=== PATIENT | male | born 1995 | race Caucasian/White ===

== ENCOUNTER 2019-10-22 20:32 | Emergency (ER) | payer OTHER, SELFPAY ==
--- NOTE | ~2019-10-22 | XR_ITS ---
EXAMINATION: XR shoulder LT min 2V DATE: 10/22/2019 20:49 INDICATION: Left shoulder pain post fall TECHNIQUE: AP internally, AP oblique externally rotated and transscapular Y views of the left shoulde r were obtained. COMPARISON: None FINDINGS: Comminuted fractures at the junction of the mid to distal diaphysis of the left clavicle. There is ap proximately 25 degrees apex cephalad angulation. There is also mild posterior displacement of the lat eral fragment with approximately 1 cm of overriding. No other fractures identified. Normal alignment and joint space the glenohumeral and acromioclavicular joints. Slice portions of the lungs are clear. IMPRESSION: Comminuted diaphyseal fractures of the left clavicle. Reviewed, dictated and finalized at location A. TECHNICIAN
[2019-10-22 20:35] VITALS: BP 127/71; PULSE 61; RESP 18; TEMP 36.7; O2SAT 100
--- NOTE | 2019-10-22 21:31 | ED_ITS ---
I attest that this documentation has been prepared under the direction and in the presence of Otto Salas MD. Anjel Nieto Scribe 10/22/19;21:31 HPI - Extremity Injury (Upper) General Chief Complaint: Extremity Injury, Upper Stated Complaint: left shoulder pain Time Seen by Provider: 10/22/19 20:54 Source: patient and RN notes reviewed Mode of arrival: ambulatory Limitations: no limitations History of Present Illness HPI narrative: Pt is a 24 y/o male presenting to the ED c/o shoulder pain. Pt reports he fell on his lt shoulder while skateboarding about 2 hrs ago. Pt reports lt shoulder pain, diaphoresis, and nausea, but denies neck pain. Pt states he did not hit his head during the fall. Onset (ago): hour(s) (2) Other Extremity Injury: Left: shoulder Place: outdoors Associated symptoms: nausea/vomiting (Nausea, no vomiting) and other ( Diaphoresis) Related Data Allergies Allergy/AdvReac Type Severity Reaction Status Date / Time No Known Allergies Allergy Unverified 04/17/14 12:07 Review of Systems Review of Systems: All systems reviewed & are unremarkable except as noted in HPI and below Cardiovascular: Cardiovascular: Reports diaphoresis Gastrointestinal: Gastrointestinal: Reports nausea Musculoskeletal: Musculoskeletal: Denies neck pain and Reports other (LT shoulder pain) [facility] Past Medical History Medical History Arm fracture Nasal fracture Seasonal allergies Toe fracture Surgical History Surgical History No significant past surgical history Social History Social History Smoking packs per day: 0.5 Smoking cigarettes per day: 10.0 Smoking status: Current every day smoker Gender identity (if verbalized by the patient): Male Course Vital Signs Vital signs: Vital Signs Temperature 36.7 C 10/22/19 20:35 Pulse Rate 61 10/22/19 20:35 Respiratory Rate 18 10/22/19 20:35 Blood Pressure 127/71 10/22/19 20:35 Pulse Oximetry 100 10/22/19 20:35 Temperature 36.7 C 10/22/19 20:35 Pulse Rate 61 10/22/19 20:35 Respiratory Rate 18 10/22/19 20:35 Blood Pressure 127/71 10/22/19 20:35 Pulse Oximetry 100 10/22/19 20:35 Discharge Plan Discharge Clinical Impression: Closed fracture of left clavicle Patient Disposition: Home, Self-Care Condition: Stable Instructions: Clavicle Fracture (ED) Additional Instructions: Return if symptoms are worsening , call your family physician/Dr. Gomez for appointment, take Tylenol as as needed for aches and pain, continue home medications. Prescriptions: New hydrocodone-acetaminophen [Leming] 5-325 mg tablet 1 tablet PO Q4H PRN (Reason: pain) Qty: 20 RF: 0 hydrocodone-acetaminophen [Leming] 5-325 mg tablet 1 tablet PO Q4H PRN (Reason: pain) Qty: 20 RF: 0 Follow-up/Referrals: Chetan Agustin MD [Physician] - 10/26/19 UNKNOWN,DOCTOR [Primary Care Provider] - Discharge Date/Time: 10/22/19 22:45 I personally performed the services described in this documentation. All medical record entries made by the scribe were at my direction and in my presence. I have review
[2019-10-22] MEDS: IBUPROFEN 600 MG TABLET PO (21:41)
== END 2019-10-22 22:45 | disposition home or self-care (01) ==
PROVIDERS: Emergency Provider Emergency Medicine
DX: S42.022A Displaced fracture of shaft of left clavicle, initial encounter for closed fracture (principal); V00.131A Fall from skateboard, initial encounter; Y93.51 Activity, roller skating (inline) and skateboarding; F17.210 Nicotine dependence, cigarettes, uncomplicated
CPT/HCPCS: 73030; 99284; A9270

== ENCOUNTER 2021-01-24 18:16 | Emergency (ER) | payer OTHER, SELFPAY ==
--- NOTE | ~2021-01-24 | XR_ITS ---
EXAMINATION: XR wrist RT min 3V DATE: 01/24/2021 18:46 INDICATION: Right wrist pain. TECHNIQUE: 4 views of right wrist were obtained. COMPARISON: Right wrist radiographs 04/17/2014 FINDINGS: Bone alignment is normal. No fracture. Joint spaces are well maintained. IMPRESSION: 1. Normal right wrist. Reviewed, dictated and finalized at location A. IMPRESSION: 1. Normal right wrist.
[2021-01-24 18:24] VITALS: BP 123/64; PULSE 89; RESP 16; TEMP 36.1; O2SAT 99
--- NOTE | 2021-01-24 19:04 | ED.UPPEXIN ---
HPI - Extremity Injury (Upper) General Chief Complaint: Extremity Injury, Upper Stated Complaint: right wrist pain Time Seen by Provider: 01/24/21 18:35 Source: patient and RN notes reviewed Mode of arrival: ambulatory Limitations: no limitations History of Present Illness HPI narrative: Patient presents today complaining of right wrist pain since September. States he fell while skateboarding and injured his wrist. Reports he wears a wrist brace but tweaks the wrist daily while starting [employer] while working for the [employer], causing increased pain. He never did get the wrist evaluated after the fall and wanted to come in for evaluation today because the pain is persisting. He does report some tingling to the ulnar side of the hand and wrist that started 1 week after the fall because he fell again. Denies any numbness. Currently rates his pain 02/26. He has been applying ice and taking Advil without relief. MD complaint: injury to: right and wrist Related Data Home Medications Medication Instructions Recorded Confirmed clonazepam 0.5 mg PO BID PRN 01/24/21 01/24/21 dextroamphetamine-amphetamine 20 mg PO DAILY 01/24/21 01/24/21 lisdexamfetamine [Vyvanse] 50 mg PO DAILY 01/24/21 01/24/21 Allergies Allergy/AdvReac Type Severity Reaction Status Date / Time No Known Allergies Allergy Verified 01/24/21 18:37 Review of Systems Review of Systems: Narrative: CONSTITUTIONAL: Denies body aches, fever, chills, or sweats. EYES: Denies visual changes, redness, or discharge. ENT: Denies rhinorrhea, congestion, sore throat, or otalgia. CARDIOVASCULAR: Denies chest pain, palpitations, or edema. RESPIRATORY: Denies cough or dyspnea. GASTROINTESTINAL: Denies abdominal pain, nausea, vomiting, or diarrhea. GENITOURINARY: Denies dysuria or hematuria. SKIN: Denies rash, itching, or wounds. MUSCULOSKELETAL: Denies back pain, or myalgia. + Right wrist pain NEUROLOGIC: Denies headache, numbness, tingling, or weakness. PSYCH: Denies depression or anxiety. [facility] Past Medical History Medical History (Updated 01/24/21 @ 19:05 by Janie Mosley, SALES ROUTE DRIVER, BC) Arm fracture Nasal fracture Seasonal allergies Toe fracture Surgical History Surgical History No significant past surgical history Social History Social History Smoking packs per day: 0.5 Smoking cigarettes per day: 10.0 Smoking status: Current every day smoker Gender identity (if verbalized by the patient): Male Comments At time of signature, I have reviewed and agree with nursing past medical, surgical, social and family history unless otherwise noted. Please see nursing chart for further information. There is no relevant family history pertinent to the presenting complaint Exam Narrative: Exam Narrative: GENERAL: Well-appearing, well-nourished, and in no acute distress. HEAD: Normocephalic, atraumatic. EYES: EOMI. No redness or drainage. Conjunctivae normal. ENT: Mucous membranes pink and moist. NECK: Normal AROM. CHEST: No respiratory distress. EXTREMITIES: Right wrist: Tenderness to the ulnar aspect of the wrist. No edema. Pain with range of motion, especially with pronation and supination. Distal sensation intact in all fingers. Capillary refill normal. Radial pulse normal. Handgrips equal and strong. SKIN: Warm, dry, no rash. Capillary refill normal. Normal skin turgor. NEURO: No focal deficits. Alert and oriented x3. Gait steady. PSYCH: Normal affect. No signs of depression or anxiety. Course Vital Signs Vital signs: Vital Signs Temperature 97.0 F L 01/24/21 18:24 Pulse Rate 89 01/24/21 18:24 Respiratory Rate 16 01/24/21 18:24 Blood Pressure 123/64 01/24/21 18:24 Pulse Oximetry 99 01/24/21 18:24 Temperature 97.0 F L 01/24/21 18:24 Pulse Rate 89 01/24/21 18:24 Respiratory Rate 16 01/24/21 18:24 Blood Pressure
== END 2021-01-24 19:13 | disposition home or self-care (01) ==
PROVIDERS: Emergency Provider Nurse Practitioner
DX: G89.29 Other chronic pain (principal); M25.531 Pain in right wrist; F17.210 Nicotine dependence, cigarettes, uncomplicated
CPT/HCPCS: 73110; 99213; G0463

== ENCOUNTER → 2021-02-21 07:41 | Outpatient (CLI) | payer OTHER, SELFPAY ==
--- NOTE | ~2021-02-21 | MR_ITS ---
EXAMINATION: MR wrist RT wo con DATE: 02/21/2021 08:30 INDICATION: Right wrist pain. TECHNIQUE: Magnetic resonance imaging (MRI) of the wrist was performed without intravenous contrast. Sequences performed include coronal T1-weighted FSE, coronal PD-weighted FS FSE, axial PD-weighted FS FSE, axial PD-weighted FSE, sagittal PD-weighted FSE, and sagittal PD-weighted FS FSE. COMPARISON: Right wrist radiograph 01/24/2021 FINDINGS: Intrinsic ligaments: The scapholunate and lunotriquetral ligaments are intact. Triangular fibrocartilage complex (TFCC): The triangular fibrocartilage is intact. Extensor wrist: There is mild extensor carpi ulnaris tendinopathy. Flexor wrist: The flexor tendons are normal. Median nerve is normal. Guyon's canal: The ulnar nerve is normal. Bones/other: Bone alignment is normal. No fracture. There is a benign bone island in the scaphoid. There is mild e romain-like marrow signal intensity in proximal lunate. There is mild edema-like marrow signal intensit y in the lower aspect of distal radius at the lunate fossa. There is enlargement and increased signal of long radiolunate ligament best seen on sagittal images. IMPRESSION: 1. Mild edema-like marrow signal intensity in proximal lunate and distal radius, consistent with stre ss reaction. No significant chondrosis identified. 2. Changes of sprain of long radiolunate ligament. 3. Mild extensor carpi ulnaris tendinopathy. Reviewed, dictated and finalized at location A. IMPRESSION: 1. Mild edema-like marrow signal intensity in proximal lunate and distal radius , consistent with stress reaction. No significant chondrosis identified. 2. Changes of sprain of long radiolunate ligament. 3. Mild extensor carpi ulnaris tendinopathy.
== END ==
PROVIDERS: PCP Orthopaedic Surgery Hand Surgery; Visit Provider Orthopaedic Surgery Hand Surgery
DX: M25.531 Pain in right wrist (principal)
CPT/HCPCS: 73221

== ENCOUNTER → 2021-09-04 12:26 | Outpatient (CLI) | payer OTHER, SELFPAY ==
--- NOTE | ~2021-09-04 | MR_ITS ---
EXAMINATION: MR shoulder RT w con DATE: 09/04/2021 14:02 INDICATION: Recurrent right shoulder dislocation. Right shoulder pain. TECHNIQUE: Magnetic resonance imaging (MRI) of the right shoulder was performed without intravenous c ontrast after intra-articular injection of contrast (MR arthrogram). Sequences included axial T1-weig hted FS FSE and T2-weighted FS FSE, coronal-oblique T1-weighted FS FSE and T2-weighted FS FSE, sagitt al-oblique T1-weighted FSE and T2-weighed FS FSE, and ABER T1-weighted FS FSE. The patient was not ab le to completely raise his arm above his head for the ABER position. COMPARISON: None. FINDINGS: Coracoacromial arch: The acromion undersurface is curved in morphology (type II). The acromioclavicular joint is normal. T here is a physiologic volume of fluid in subacromial/subdeltoid bursa. Rotator cuff: There is mild supraspinatus and infraspinatus tendinopathy. Teres minor tendon is normal. There was i njection of some contrast into the subscapularis tendon and muscle. The subscapularis tendon is other jj normal. There is no asymmetric fatty atrophy of the rotator cuff muscle bellies. Biceps tendon and glenoid labrum: Biceps tendon is in bicipital groove. Intra-articular biceps tendon is normal. There is a tear of ant erior glenoid labrum from 1:00 to 4:00. Bones/cartilage: There is an impaction fracture deformity of superior posterolateral aspect of humeral head (Hill-Sach s fracture deformity). The glenoid cartilage is normal. Humeral head cartilage is normal. IMPRESSION: 1. Tear of anterior glenoid labrum from 1:00 to 4:00. 2. Hill-Sachs fracture deformity. 3. Mild rotator cuff tendinopathy. No tear. Reviewed, dictated and finalized at location A. TH CARE / MEDICAL JOB TITLES
--- NOTE | ~2021-09-04 | XR_ITS ---
EXAMINATION: XR fl inj shoulder RT - MR/CT EXAM DATE: 09/04/2021 13:10 INDICATION: Pain in right shoulder. Right shoulder dislocation after accident. Subsequently has had 4 other shoulder dislocations. TECHNIQUE: This procedure was performed by Dr. Flaquito Rodriguez, radiologist. I discussed procedure inclu ding the risks, benefits and alternatives with the patient. Risks discussed included bleeding and inf ection. The patient understood the risks and agreed to proceed. A time-out was performed to verify the patient's name, date of , and procedure. The skin over lying the right shoulder joint was prepped and draped in usual sterile fashion. Anesthetic was admin istered with 2 milliliters 1% lidocaine subcutaneously. A 22 G needle was advanced under fluoroscopi c guidance into the joint. A total of 10 mL of 1:200 of 529 mg/mL Multihance, 1:4 lidocaine, and 1:4 Omnipaque 240 was instilled. The needle was removed and the entry site was cleaned and dressed. There were no immediate complications. Remaining contrast, needle were left available in the event t hat additional contrast injection into joint was required, until initial MR images were reviewed. Pul sed dose reduction fluoroscopy was used with fluoroscopic time of 0.1 minutes. The DAP for this proc edure was 0.18 Gycm2. A total of 6 images obtained for the exam. The procedure was performed on 08/19. FINDINGS: Real-time fluoroscopy demonstrates the needle and contrast in the right shoulder joint. Als o, some contrast in the muscle anterior to the right shoulder. Initial MR images were evaluated by ra diologist interpreting that study, deemed adequate amount of intra-articular contrast for interpretat ion. IMPRESSION: Successful right shoulder joint injection for subsequent MRI. Reviewed, dictated and finalized at location B. D IMPROVEMENT ENGINEER
== END ==
PROVIDERS: Visit Provider Orthopaedic Surgery Hand Surgery
DX: S43.431A Superior glenoid labrum lesion of right shoulder, initial encounter (principal); X58.XXXA Exposure to other specified factors, initial encounter
CPT/HCPCS: 23350; 73222; 77002; A9577; Q9966

== ENCOUNTER → 2023-01-05 09:05 | Outpatient (CLI) | payer OTHER, SELFPAY ==
--- NOTE | ~2023-01-05 | XR_ITS ---
XR chest 2V DATE: 01/05/2023 09:23 INDICATION: Wheezing, cough. History of asthma as a child. Smoker. TECHNIQUE: 2 views COMPARISON: 01/27/2004 2 view chest FINDINGS: Normal heart size. No hilar or mediastinal enlargement. No pulmonary infiltrate or consolid ation, pleural effusions or pulmonary vascular congestion or pneumothorax. IMPRESSION: No active cardiopulmonary disease Reviewed, dictated and finalized at location B.
== END ==
PROVIDERS: PCP Nurse Practitioner Family; Visit Provider Nurse Practitioner Family
DX: R05.9 Cough, unspecified (principal); J45.909 Unspecified asthma, uncomplicated; F17.200 Nicotine dependence, unspecified, uncomplicated
CPT/HCPCS: 71046